=== PATIENT | male | born 1955 | race Caucasian/White ===

== ENCOUNTER → 2024-04-30 07:02 | Outpatient (REF) | payer OTHER, SELFPAY | LOC: HWRCS 07:02 | PROVIDERS: ATTENDING PHYSICIAN Physician Assistant Medical; FAMILY PHYSICIAN Family Medicine | DX: R06.02 Shortness of breath (principal); I10 Essential (primary) hypertension; I77.810 Thoracic aortic ectasia | CPT/HCPCS: 93306 ==

== ENCOUNTER → 2024-05-02 07:51 | Outpatient (REF) | payer OTHER, SELFPAY | LOC: RCS 07:51 | PROVIDERS: ATTENDING PHYSICIAN Physician Assistant Medical; FAMILY PHYSICIAN Family Medicine | DX: R06.02 Shortness of breath (principal); I10 Essential (primary) hypertension; Z72.0 Tobacco use; I77.810 Thoracic aortic ectasia | CPT/HCPCS: 93017; 93350 ==